=== PATIENT | female | born 1965 | race American Indian/Alaskan Native ===

== ENCOUNTER 2021-03-07 17:59 | Inpatient (IN) | payer MEDICAID ==
[2021-03-13 10:03] VITALS: BP 122/74
== END 2021-03-13 13:36 | disposition home or self-care (01) | DRG 885 ==
LOC: 3A 17:59 → UNDOADMIN 17:59 → 5A 03-08 01:51
PROVIDERS: ADMIT Psychiatry & Neurology Psychiatry; ATTEND Psychiatry & Neurology Psychiatry
DX: F33.2 Major depressive disorder, recurrent severe without psychotic features (principal); I10 Essential (primary) hypertension; F43.10 Post-traumatic stress disorder, unspecified; F41.9 Anxiety disorder, unspecified; G89.4 Chronic pain syndrome; M19.90 Unspecified osteoarthritis, unspecified site; Z21 Asymptomatic human immunodeficiency virus [HIV] infection status; H40.9 Unspecified glaucoma; F17.200 Nicotine dependence, unspecified, uncomplicated; J45.998 Other asthma; Z90.710 Acquired absence of both cervix and uterus; Z90.49 Acquired absence of other specified parts of digestive tract; Z79.899 Other long term (current) drug therapy; Z59.0 Homelessness; Z88.1 Allergy status to other antibiotic agents
CPT/HCPCS: 36415; 80053; 80061; 80074; 82962; 84443; 85025; G0378; A6250; Q0177